=== PATIENT | female | born 1960 | race Caucasian/White ===

== ENCOUNTER → 2023-01-23 12:41 | Outpatient (BNVA) | payer BC, SELFPAY | PROVIDERS: Visit Provider Podiatrist Foot & Ankle Surgery | DX: Q82.8 Other specified congenital malformations of skin (principal); M72.2 Plantar fascial fibromatosis; L60.3 Nail dystrophy; M79.671 Pain in right foot; M79.672 Pain in left foot | CPT/HCPCS: 73630 ==